=== PATIENT | female | born 1985 | race Caucasian/White ===

== ENCOUNTER 2021-10-05 10:16 | Inpatient (IN) ==
[2021-10-05] MEDS ORDERED: OXYTOCIN 30 UNITS/500 ML BAG IV PRN ×2 (12:04→18:43)
[2021-10-05 12:41] LABS: Hemoglobin 12.1 g/dl (12.0-16.0); Mean Corpuscular Hemoglobin 31.5 pg (25.0-34.0); Mean Corpuscular Hgb Conc 34.6 g/dL (32.0-36.0); Mean Corpuscular Volume 91.1 fL (80.0-100.0); Mean Platelet Volume 9.4 fL (9.4-12.3); Platelet Count 269 K/uL (130-400); RDW Coefficient of Variation 14.3 % (11.5-14.5); RDW Standard Deviation 47.2 fL (36.4-46.3); Red Blood Count 3.84 M/uL (3.93-5.22); White Blood Count 16.32 K/ul (4.8-10.8)
[2021-10-05] MEDS: LACTATED RINGER'S 1,000 ML IV PRN ×2 (19:04→20:45)
[2021-10-05] MEDS ORDERED: fentaNYL citrate 100 MCG/2 ML VIAL ONE (20:17)
[2021-10-05] MEDS ORDERED: ePHEDrine sulfate 50 MG/ML AMP ONE (20:17)
[2021-10-05] MEDS ORDERED: SODIUM CHLORIDE 0.9% INJ 10 ML VIAL ONE (20:17)
[2021-10-05] MEDS ORDERED: fentaNYL 2MCG/ML ROPIVACAINE 1.25MG/ML 100 ML BAG EPI ONE (20:17)
[2021-10-05] MEDS ORDERED: LIDOCAINE 2%/EPINEPHRINE 1:200,000 20 ML SDV ONE (20:17)
[2021-10-05] MEDS ORDERED: BUPIVACAINE 0.25% 30 ML VIAL ONE (20:17)
[2021-10-05] MEDS ORDERED: NALBUPHINE HCL INJ 10 MG/ML AMP IV PRN (20:43)
[2021-10-05] MEDS ORDERED: diphenhydrAMINE 50 MG/ML VIAL IV PRN (20:43)
[2021-10-05] MEDS ORDERED: NALOXONE HCL 0.4 MG/1 ML VIAL/CARP IV PRN (20:43)
[2021-10-05] MEDS ORDERED: fentaNYL 2MCG/ML ROPIVACAINE 1.25MG/ML 100 ML BAG EPI PRN (20:43)
[2021-10-05] MEDS ORDERED: NALOXONE HCL 1 MG in SODIUM CHLORIDE 0.9% 1000ML 1,000 ML IV PRN (20:43)
[2021-10-05] MEDS ORDERED: ONDANSETRON INJ 2 MG/ML 2 ML VIAL IV PRN (20:43)
[2021-10-05] MEDS ORDERED: ePHEDrine sulfate 50 MG/ML AMP IV PRN (20:43)
--- NOTE | 2021-10-05 20:44 | Anesthesiology Consultation ---
Date of Service October 05, 2021 Assessment & Plan Chart Review Chart Review: Patient NOT seen in Pre Admission Testing and Acceptable Risk for Labor Epidural Consults Requested none ASA ASA2 Proposed Anesthesia Anesthesia Type: Labor Epidural and CSE Risk / Benefits Reviewed With: PT / POA / Parent / Guardian, Accepts Plan and Informed Consent Obtained History Height/Weight Height: 5 ft 5 in Weight: 98.883 kg Allergies Allergy/AdvReac Type Severity Reaction Status Date / Time No Known Allergies Allergy Mild Verified 10/05/21 11:03 Medications Home Medications Medication Instructions Recorded Confirmed Last Taken prenat.vits,hal,kqv-tklx-fsogv 1 tab PO DAILY 10/05/21 10/05/21 10/05/21 07:00 Active Medications Generic Name Dose Route Start Last Admin Trade Name Freq PRN Reason Stop Dose Admin Lactated Ringer's 1,000 mls @ 125 mls/hr 10/05/21 12:04 10/05/21 20:15 Lr IV 10/07/21 12:03 999 mls/hr .Q8H PRN Infusion L&D Protocol Protocol Oxytocin 30 units in 500 mls @ 2 mls/hr 10/05/21 18:43 10/05/21 20:29 Pitocin IV 10/07/21 18:42 0.12 units/hr .Q24H PRN 2 mls/hr Labor Induction/Augmentation Administration Protocol 0.12 UNITS/HR NPO Date Last Intake of Fluids: 10/05/21 Time Last Intake of Fluids: 20:00 Date Last Intake of Solids: 10/05/21 Time Last Intake of Solids: 08:00 Past Medical History Medical History Migraines Exercise / Class Metabolic Activity II 4-5 Yardwork/Stairs/Walk up hill Past Surgical History Surgical History [place] teeth extracted Past Anesthesia History No Hx of Anesthesia Complications and No Family Hx of Anesthesia Complications History of PONV No Hx of PONV and No Hx of Motion Sickness Social History Smoking Status: Former smoker Hx Alcohol Use: No Hx Substance Use: No substance use type: does not use Review of Systems no chest pain or sob Physical Exam Vital Signs Last Vital Signs Temp 36.5 C 10/05/21 20:27 Pulse 96 H 10/05/21 20:38 Resp 18 10/05/21 20:27 BP 123/66 10/05/21 20:28 Pulse Ox 100 10/05/21 20:38 O2 Del Method 10/05/21 19:09 ENMT Mouth: no TMJ abnormality Thyromental Distance: > or= 3.5 Finger Breadths Mallampati Class: II Neck normal visual inspection Respiratory normal respiratory effort Auscultation: lungs clear to auscultation bilaterally Cardiovascular Rate/Rhythm: regular rate and regular rhythm Musculoskeletal Spine: normal cervical ROM Neurologic moves all extremities Psychiatric Orientation: alert and oriented x 3 Testing Laboratory Results 10/05/21 12:14 Blood Type A Negative 10/05/21 12:14 Antibody Screen NEGATIVE 10/05/21 12:14
[2021-10-06] MEDS ORDERED: METHYLERGONOVINE MALEATE 0.2 MG/ML AMP ONE (03:09)
[2021-10-06] MEDS ORDERED: DIPHTHERIA/TETANUS/PERTUSSIS 0.5 ML SYR/VIAL IM ONE (03:26)
[2021-10-06] MEDS ORDERED: ACETAMINOPHEN W/CODEINE #3 1 TAB PO PRN (03:26)
[2021-10-06] MEDS ORDERED: ACETAMINOPHEN 325 MG TAB PO PRN (03:26)
[2021-10-06] MEDS ORDERED: HYDROCORTISONE ACETATE 25 MG SUPP PR PRN (03:26)
[2021-10-06] MEDS ORDERED: oxyCODONE/ACETAMINOPHEN 5mg/325mg TAB PO PRN (03:26)
[2021-10-06] MEDS ORDERED: BENZOCAINE 20% AER SPR 82.5 GM CAN EXT PRN (03:26)
[2021-10-06] MEDS ORDERED: OXYTOCIN 30 UNITS/500 ML BAG IV PRN (03:26)
[2021-10-06] MEDS ORDERED: METHYLERGONOVINE MALEATE 0.2 MG/ML AMP IM ONE (03:26)
--- NOTE | 2021-10-06 05:33 | Anesthesia Procedure Note ---
Date of Service October 06, 2021 Anesthesia Post Epidural Note Vital Signs Vital Signs: Temp Pulse Resp BP Pulse Ox O2 Del Method 37.1 C 93 H 18 116/60 96 10/06/21 01:45 10/06/21 05:21 10/06/21 04:55 10/06/21 05:21 10/06/21 02:58 10/05/21 19:09 Notes Mental Status: alert / awake / arousable and participated in evaluation Nausea / Vomiting: adequately controlled Pain: adequately controlled Airway Patency, RR, SpO2: stable & adequate BP & HR: stable & adequate Hydration State: stable & adequate Neuraxial Anesthesia: was administered and sensory block is resolving Anesthetic Complications: no major complications apparent and Pt Satisfied with anesthetic care Epidural: Removed without complications and With tip intact
[2021-10-06] MEDS: IBUPROFEN 600 MG TAB PO PRN ×3 (06:34→17:43)
[2021-10-06] MEDS: DOCUSATE SODIUM 100 MG CAP PO SCH ×2 (08:47→21:39)
[2021-10-06] MEDS: PRENATAL VITAMIN 1 TAB PO SCH (08:47)
--- NOTE | 2021-10-06 08:54 | Delivery Summary ---
DELIVERY NOTE: She is a 1, para 1, blood type A negative, group B strep negative, was admitt ed in the morning of 10/05/2021 in early labor. She walked for a while and eventually she was augmen sarah with IV Pitocin and then requested and received epidural for pain control. After she had the epid ural, membranes were ruptured surgically. She labored down and then pushed out a live female in under 20 minutes, delivered via direct occiput anterior position over an intact perineum. was suctioned through the mouth and the nose. Meconium fluid was noted at this time. The cord was a llowed to pulse for over a minute, then clamped and cut by the father. Cord blood was taken. With I V Pitocin running, the placenta was removed intact. Inspection of the perineum revealed a first-degr ee laceration of the perineum. This was repaired with 2-0 Vicryl approximating the vaginal mucosa out and to beyond the hymenal ring. A deep suture was used to approximate the bulbocavernosus muscles. Three sutures were approximated the perineal body and then the running subcuticular sutures to appro ximate the perineal skin edges. Following this, vaginal exam revealed no hematoma formation or spong es in the vagina. The patient tolerated the procedure well. ESTIMATED BLOOD LOSS: 200 mL. Job ID: [id number]
[2021-10-07] MEDS: IBUPROFEN 600 MG TAB PO PRN ×2 (00:09→07:59)
--- NOTE | 2021-10-07 07:36 | Obstetrical Progress Note ---
Date of Service October 07, 2021 Assessment & Plan Admission and Anticipated Discharge Date Admission Date: October 05, 2021 Subjective abdomen soft and non tender no calf tenderness ambulating well vaginal bleeding scant hbg 12.1 Results & Data ([facility]) Vital Signs (Past 12 Hours) Vital Signs Temp Pulse Resp BP Pulse Ox O2 Del Method 10/07/21 04:35 36.7 C 80 18 103/66 98 Room Air 10/07/21 00:05 36.7 C 72 20 116/77 98 Room Air 10/06/21 19:55 36.6 C 90 20 118/75 99 Room Air
[2021-10-07] MEDS: DOCUSATE SODIUM 100 MG CAP PO SCH (08:00)
[2021-10-07] MEDS: PRENATAL VITAMIN 1 TAB PO SCH (08:00)
[2021-10-07 08:41] LABS: Hematocrit (blood only) 29.2 % (34.1-44.9); Hemoglobin 9.9 g/dl (12.0-16.0); Mean Corpuscular Hemoglobin 31.1 pg (25.0-34.0); Mean Corpuscular Hgb Conc 33.9 g/dL (32.0-36.0); Mean Corpuscular Volume 91.8 fL (80.0-100.0); Mean Platelet Volume 9.2 fL (9.4-12.3); Platelet Count 215 K/uL (130-400); RDW Coefficient of Variation 14.5 % (11.5-14.5); RDW Standard Deviation 48.3 fL (36.4-46.3); Red Blood Count 3.18 M/uL (3.93-5.22); White Blood Count 13.59 K/ul (4.8-10.8)
[2021-10-07] MEDS ORDERED: bisacodyL 5 MG TABEC PO SCH (20:00)
[2021-10-08] MEDS ORDERED: bisacodyL 10 MG SUPP PR PRN
--- NOTE | 2021-10-14 09:53 | Coding Query ---
CODING QUERY To promote full compliance with coding requirements relating to patient care, provider participation is requested in all cases of data coder operator uncertainty. Please assist us with the question(s) below: Coding Question(s): Please state the weeks of gestation at the time of admission. This information is missing from the documentation. Physician's Response(s): 40 weeks 2 days Thank you Jenny Bolivar Principal Diagnosis: "that condition established after study, to be chiefly responsible for occasioning the admission of the patient to the hospital for care." Co-Existing Principal Diagnosis: "when two or more diagnoses equally meet the criteria for principal diagnosis as determined by the circumstances of admission, diagnostic work up, and/or therapy provided, and the Alphabetic Index, Tabular List, or another coding guideline does not provide sequencing direction, any one of the diagnoses may be sequenced first." "When the physician has documented what appears to be a current diagnosis in the body of the record, but has not included the diagnosis in the final diagnostic statement, the physician should be asked whether the diagnosis should be added." (Source Coding [facility] 2 QTR90. p3-4) JULIEN
== END 2021-10-07 12:00 | disposition home or self-care (01) | DRG 807 ==
LOC: OPB 10:16 → 4S1 10:19 → 4E2 10-06 05:35
DX: O70.0 First degree perineal laceration during delivery; Z37.0 Single live birth; O48.0 Post-term pregnancy; Z3A.40 40 weeks gestation of pregnancy; O77.0 Labor and delivery complicated by meconium in amniotic fluid